=== PATIENT | male | born 1960 | race Caucasian/White ===

== ENCOUNTER → 2016-08-30 | Outpatient (CLI) | payer OTHER ==
[~2016-08-30] MED LIST: SALINE FLUSH 10ml SYRINGE ONE; SINCALIDE 5 MCG/VIAL IJ ONE; SODIUM CHLORIDE (Bacteriostatic) 30ml VIAL ONE
--- NOTE | 2016-08-30 11:32 | DI ---
Indication: ITS.REASON: R10.9 ABD PAIN NM HEPATOBIL/EF: Comparison: None Technique: Patient was injected with 6 mCi Mebrofenin which demonstrates a homogeneous distribution of the radiopharmaceutical throughout the liver and prompt visualization of gallbladder and biliary tree. Patient isn't given 2.2 mcg intravenous Kinevac. This was injected with approximately 55 minutes. Findings: Calculated gallbladder ejection fraction is 43%. Impression: Normal gallbladder ejection fraction at 43% lab normal being greater than 35%. Patient experienced no marked pain during the Kinevac injection. No other significant findings. .
== END ==
LOC: IMA 06:44
PROVIDERS: ATTEND Family Medicine
DX: R10.13 Epigastric pain (principal)
CPT/HCPCS: 78227; A9537; J2805

== ENCOUNTER → 2016-09-25 | Outpatient (CLI) | payer OTHER ==
[~2016-09-25] VITALS: Ht 174 cm; Wt 117.2 kg
--- NOTE | 2016-09-25 08:13 | DI ---
INDICATION: ITS.REASON: R05.09 DYSPNEA OF EXERTION PROCEDURE: CHEST 2-VIEWS UPRIGHT (PA \T\ LAT) Encounter: Initial COMPARISON: None FINDINGS: The lungs are clear without evidence of focal abnormal airspace opacity. There is no pleural effusion or pneumothorax. Heart size is normal. Small hiatal hernia. IMPRESSION: No acute cardiopulmonary disease. .
== END ==
LOC: RC 07:41
PROVIDERS: ATTEND Family Medicine
DX: R06.09 Other forms of dyspnea (principal)
CPT/HCPCS: 94010; 94726